=== PATIENT | male | born 1940 | race Caucasian/White ===

== ENCOUNTER 2023-12-16 11:13 | Emergency (ER) | payer MEDICARE, SELFPAY ==
--- NOTE | ~2023-12-16 | CT_ITS ---
EXAMINATION: CT brain wo con DATE: 12/16/2023 11:38 INDICATION: Patient fell 4 days ago and struck left side of head. TECHNIQUE: Computed tomography (CT) of the head was performed without intravenous contrast. The mA wa s adjusted according to patient size. Iterative reconstruction technique was employed. Exam dose: 68 1.00 mGy-cm total exam DLP. COMPARISON: None FINDINGS: No intracranial mass lesion or hemorrhage or cerebrovascular accident is evident. Moderate cerebellar and central and cortical cerebral atrophy.. There is intracranial cerebral atherosclerotic calcification. Is nonspecific diminished attenuation o f the cerebral white matter and are likely due to chronic small vessel ischemic changes. No subdural or epidural hematoma is detected. The orbital contents are unremarkable. No fracture or bone destruction of the cranial vault Mastoid air cells and included paranasal sinuses are unremarkable. IMPRESSION: No skull fracture or acute intracranial abnormality Reviewed, dictated and finalized at [facility] Reviewed, dictated and finalized at [facility].
--- NOTE | ~2023-12-16 | CT_ITS ---
EXAMINATION: CT thoracic spine wo con DATE: 12/16/2023 11:38 INDICATION: Patient fell 4 days ago. Back pain. TECHNIQUE: Computed tomography (CT) of the thoracic spine was performed without intravenous contrast. Automated exposure control and iterative reconstruction technique were employed. Exam dose: 1571.44 mGy-cm total exam DLP. COMPARISON: None FINDINGS: There is mild extra scoliosis of the upper thoracic spine and mild levoscoliosis of the low er thoracic spine. Severe degenerative disc disease noted at the included C6-7 and C7-T1 levels. Prominent degenerative changes of the thoracic spine including particularly severe degenerative disc disease T5-6, T6-7 and T7-8. There is fusion at T8-9. There is prominent degenerative disc disease at T9-10, T10-11. There is amy re degenerative disc disease at the included upper lumbar spine.. There is mild anterior wedge compression fracture of undetermined age of T11. IMPRESSION: Mild anterior wedge compression fracture of undetermined age of T11 Severe degenerative changes of the lower cervical spine, thoracic and upper lumbar spine Reviewed, dictated and finalized at [facility] Reviewed, dictated and finalized at [facility]. IMPRESSION: Mild anterior wedge compression fracture of undetermined age of T1 1 Severe degenerative changes of the lower cervical spine, thoracic and upper lum bar spine
--- NOTE | ~2023-12-16 | CT_ITS ---
EXAMINATION: CT cervical spine wo con DATE: 12/16/2023 11:39 INDICATION: Patient fell 4 days ago and struck left side of head. TECHNIQUE: Computed tomography (CT) of the cervical spine was performed without intravenous contrast. Automated exposure control and iterative reconstruction technique were employed. Exam dose: 514.94 mGy-cm total exam DLP. COMPARISON: None FINDINGS: Normal atlantoaxial axial articulation. Straightening of the cervical spine, which may be due to muscle spasm. C1 and C2 are normally aligned and the odontoid process is intact. No fracture or dislocation or lock ed facet or prevertebral soft tissue swelling. Proxy 2.7 mm anterolisthesis at C2-3. Severe degenerative disc disease and mild retrolisthesis at C3-4. Mild degenerative disc disease at C2 millimeters anterolisthesis at C4-5. Severe degenerative disc disease at C5-6, C6-7 and C7-T1. There is degenerative change throughout the apophyseal joints, particularly severe bilaterally at C2- 3, C3-4 and C4-5. Prominent uncovertebral joint spurring in the mid and lower cervical spine.. IMPRESSION: Severe cervical spondylosis; no fracture or dislocation Straightening of the cervical spine which may be due to muscle spasm. Reviewed, dictated and finalized at [facility]. Reviewed, dictated and finalized at [facility].
[2023-12-16 11:13] VITALS: BP 162/86; PULSE 72; RESP 17; TEMP 37.5; O2SAT 98
--- NOTE | 2023-12-16 11:15 | PC.NURSE ---
Patient taken to CT.
--- NOTE | 2023-12-16 11:19 | ED.FALL ---
HPI - Fall General Chief Complaint: Fall Stated Complaint: fall x3days Time Seen by Provider: 12/16/23 11:15 Source: patient Mode of arrival: ambulatory Limitations: no limitations History of Present Illness HPI Narrative: Patient is an 83-year-old male with a fall 5 days ago. He was drinking a little too much at the bar and fell accidentally mechanically. He hit his left head and sustained a laceration that he is taking care of on his own. No further bleeding or problems from the laceration. MD complaint: fall Onset (ago): day(s) (5) Fall from: standing Fall witnessed: yes, by bystander Place fall occurred: other ( At the bar) Loss of consciousness: none Prolonged down time: no Symptoms prior to fall: none Context: tripped/slipped and alcohol use Location of injury: head, neck ( C-spine) and back ( upper) Severity: moderate Severity scale (1-10): 4 Quality: sharp Associated symptoms (after fall): denies Related Data Allergies Allergy/AdvReac Type Severity Reaction Status Date / Time No Known Allergies Allergy Verified 12/16/23 11:14 Review of Systems Review of Systems: All systems reviewed & are unremarkable except as noted in HPI and below Constitutional: Constitutional: Reports no additional constitutional complaints Eyes: Eyes: Reports no additional eye complaints ENT: Reports system reviewed and no additional complaints, except as documented Cardiovascular: Cardiovascular: Reports no additional cardiovascular complaints Respiratory: Respiratory: Reports no additional respiratory complaints Gastrointestinal: Gastrointestinal: Reports no additional gastrointestinal complaints Genitourinary: Genitourinary: Reports no additional male genitourinary complaints Musculoskeletal: Musculoskeletal: Reports no additional musculoskeletal complaints Integumentary/Breasts: Skin/Breast: Reports system reviewed and no additional complaints, except as docu Neurologic: Reports system reviewed and no additional complaints, except as documented Psychiatric: Psychiatric: Reports no additional psychiatric complaints Endocrine: Endocrine: Reports no additional endocrine complaints Hematologic/Lymphatic: Hematologic/Lymphatic: Reports no additional hematologic/lymphatic complaints Allergic/Immunologic: Allergic/Immunologic: Reports no additional allergic/immunologic complaints Exam Const: General: healthy appearing Nutritional Appearance: well nourished Orientation/consciousness: patient oriented x3 HENMT: Head: normal to inspection Ears: external ears normal Face/Nose/Sinus: Normal external nose present Face and sinus: normal facial exam Mouth: Yes Normal oral and palatal mucosa present Teeth and gingiva: dentition normal Throat: posterior oropharynx normal Eyes: Conjunctivae: conjunctivae normal Pupils: Equal, round and reactive pupils present EOM: EOMs intact bilaterally Direct Ophthalmoscopy: no photophobia Neck: Neck: normal visual inspection Chest: Chest palpation & inspection: normal inspection of the chest Resp: Effort & Inspection: normal respiratory effort and not labored Auscultation: clear to auscultation bilaterally and no crackles Cardio: Rate: regular rate Rhythm: regular rhythm Heart sounds: no murmurs GI: Inspection: non-distended Auscultation: normal bowel sounds : General: Yes bladder normal to palpation Back/Spine/Pelvis: Back: no CVA tenderness Skin: General skin exam: normal color Rashes: no rashes Wounds: wound noted and wounds noted Other: left parietal scalp has a 3 cm curvilinear laceration that is healing up on its own since it is 5 days of age without bleeding or infection Neuro: General: patient oriented x3 Cranial nerves: Yes Nystagmus not present Speech: normal speech Other: fast exam negative GCS 15 NIH 0 Extrem: General: normal to inspection Psych: Mental Status: mental status grossly normal Affect: normal affect Attitude: cooperat
[2023-12-16 11:30] VITALS: BP 171/87; PULSE 72; RESP 17; O2SAT 98
[2023-12-16] MEDS: HYDROcodone/acetaminophen (*CRX) 5-325 MG TABLET 1 TAB PO (11:39)
[2023-12-16] MEDS: TETANUS,DIPHTHERIA,AC PERTUSSIS ADULT 0.5 ML (ADACEL) IM (11:40)
[2023-12-16 12:00] VITALS: BP 175/89; PULSE 68; RESP 16; O2SAT 98
[2023-12-16 12:27] VITALS: BP 162/72; PULSE 72; RESP 17; TEMP 36.9; O2SAT 99
== END 2023-12-16 12:27 | disposition home or self-care (01) ==
PROVIDERS: Emergency Provider Emergency Medicine; PCP Family Medicine
DX: M48.54XA Collapsed vertebra, not elsewhere classified, thoracic region, initial encounter for fracture (principal); S09.90XA Unspecified injury of head, initial encounter; W19.XXXA Unspecified fall, initial encounter; Z23 Encounter for immunization
CPT/HCPCS: 70450; 72125; 72128; 90471; 90715; 99284; A9270